=== PATIENT | male | born 1985 | race Caucasian/White ===

== ENCOUNTER → 2021-05-06 16:10 | Outpatient (CLI) | payer BC, OTHER, SELFPAY ==
--- NOTE | ~2021-05-06 | XR_ITS ---
XR ankle LT min 3V DATE: 05/06/2021 16:25 INDICATION: Acute left ankle pain TECHNIQUE: 4 views COMPARISON: None FINDINGS: There is mild tibiotalar osteoarthritis. There accessory ossicles at the inferior aspect of the lateral malleolus. There is mild lateral soft tissue swelling. No fracture or dislocation of the ankle or disruption of the ankle mortise is detected. No periosteal reaction or bone destruction. IMPRESSION: Mild tibiotalar osteoarthritis Reviewed, dictated and finalized at location B.
== END ==
PROVIDERS: PCP Nurse Practitioner Family; Visit Provider Nurse Practitioner Family
DX: M19.072 Primary osteoarthritis, left ankle and foot (principal)
CPT/HCPCS: 73610

== ENCOUNTER → 2021-05-16 16:18 | Outpatient (CLI) | payer BC, OTHER, SELFPAY ==
--- NOTE | ~2021-05-16 | MR_ITS ---
EXAMINATION: MR ankle LT wo con DATE: 05/16/2021 17:28 INDICATION: Acute onset left ankle pain post twisting ankle injury 2 months prior TECHNIQUE: Magnetic resonance imaging (MRI) of the left ankle was performed without intravenous contr ast. Sequences included sagittal, coronal, and axial proton-density weighted fast spin echo without a nd with fat saturation. COMPARISON: None. FINDINGS: Medial ankle ligaments: Deep and superficial deltoid ligaments as well as the spring ligament are normal. Lateral ankle ligaments: The anterior and posterior inferior tibiofibular ligaments are normal. The posterior talofibular liga ment is normal. There is thickening and mild increased signal of both the anterior talofibular and ca lcaneofibular ligaments with mild surrounding edema consistent with likely subacute partial tears. Th ere is heterotopic ossification along the anterior talofibular ligament consistent with sequela of a more chronic sprain. Tendons: Achilles tendon is normal. The peroneus longus mild peroneus brevis brevis tendons are normal. There is also a normal variant accessory peroneus quartus tendon appears to insert along the lateral calcan eus. The tibialis anterior and extensor hallucis longus and extensor digitorum longus tendons are nor mal. The tibialis posterior, flexor digitorum longus and flexor hallucis longus tendons are normal. Plantar fascia: The plantar aponeurosis is normal. Bones/other: There is marrow edema centered along the medial rim of the talar dome where there appears be an osteo chondral fracture with minimally displaced sliver like fragment. A tiny corresponding concavity to ap preciate on the mortise view of the prior radiographs. Bone alignment is otherwise normal. Otherwise normal marrow signal. Joint spaces are relatively preserved. Fluid: Small left ankle joint effusion. No other abnormal fluid collections. IMPRESSION: 1. Tiny minimally displaced sliver-like osteochondral fracture along the medial rim of the talar dome with likely reactive small left ankle joint effusion. 2. Likely subacute on chronic sprains of the anterior talofibular and calcaneofibular ligaments. Reviewed, dictated and finalized at location A. IMPRESSION: 1. Tiny minimally displaced sliver-like osteochondral fracture along the medial rim of the talar dome with likely reactive small left ankle joint effusion. 2. Likely subacute on chronic sprains of the anterior talofibular and calcaneof ibular ligaments.
== END ==
PROVIDERS: PCP Nurse Practitioner Family; Visit Provider Nurse Practitioner Family
DX: M25.572 Pain in left ankle and joints of left foot (principal); S92.192A Other fracture of left talus, initial encounter for closed fracture; M25.472 Effusion, left ankle; S93.492A Sprain of other ligament of left ankle, initial encounter
CPT/HCPCS: 73721